=== PATIENT | male | born 1990 | race Caucasian/White ===

== ENCOUNTER 2017-02-12 19:47 | Emergency (ER) | payer SELFPAY ==
[~2017-02-12] VITALS: Ht 177.8 cm; Wt 79.4 kg
[2017-02-12 20:15] VITALS: BP 130/84
--- NOTE | 2017-02-12 21:01 | Emergency Room Report ---
History of Present Illness General Chief Complaint: Upper Extremity Injury Source: Patient Present Illness HPI Patient is a 26-year-old male who is right-hand dominant who presented after increased right upper extremity pain and swelling. Patient reportedly struck a wall. Patient denied any recent tetanus vaccine is. He noticed increased pain and swelling to the area after this occurred. Patient denied prior medical history. He denies taking any psychiatric medications or drinking alcohol recently. He denies numbness to his hand. Allergies: Coded Allergies: No Known Allergies (Unverified , 02/12/17) Patient History Reviewed Nursing Documentation: PMH: Agreed, PSxH: Agreed Nursing Documentation-PM Past Medical History: No Stated History Review of Systems All Other Systems: negative except mentioned in HPI Physical Exam Vital Signs Date Time Temp Pulse Resp B/P Pulse Ox O2 Delivery O2 Flow Rate FiO2 02/12/17 20:10 98.8 81 14 121/82 98 Room Air Sp02 EP Interpretation: reviewed, normal General Appearance: normal inspection, well appearing, no apparent distress, alert, GCS 15 Head: atraumatic ENT: normal ENT inspection, hearing grossly normal, normal voice Neck: normal inspection, full range of motion, supple, no bony tend Respiratory: normal inspection, lungs clear, normal breath sounds, no respiratory distress, no retraction, no wheezing Cardiovascular #1: regular rate, rhythm, no edema Gastrointestinal: normal inspection, normal bowel sounds, non tender, soft, no guarding, no hernia Genitourinary: no CVA tenderness Musculoskeletal: normal inspection, back normal, normal range of motion Neurologic: normal inspection, alert, oriented x3, responsive, radiation oncologist III-XII nml as tested, speech normal Psychiatric: normal inspection, judgement/insight normal, mood/affect normal Skin: normal inspection, normal color, no rash Medical Decision Making Diagnostic Impression: Primary Impression: Boxer's fracture ER Course Patient presented for hand pain. Differential diagnosis included was not limited to fracture, contusion, cellulitis among others. Patient appeared to have the evidence of swelling consistent with a possible boxer's fracture. X- ray imaging was ordered. X-ray imaging of the right hand 3 view interpreted by me showed fifth metacarpal fracture which was minimally angulated. The patient declined reduction attempts. Patient was placed in an ulnar gutter splint. He is advised followup with orthopedics. The patient is advised to follow up in 2-3 days for recheck. Patient is advised to return if any worsening condition or if any changes in status that are concerning. Last Vital Signs Date Time Temp Pulse Resp B/P Pulse Ox O2 Delivery O2 Flow Rate FiO2 02/12/17 20:10 98.8 81 14 121/82 98 Room Air Status: improved Disposition: HOME, SELF-CARE Condition: Stable Scripts Ibuprofen* (MOTRIN*) 600 Mg Tablet 600 MG ORAL Q8H Y for For Pain, #30 TAB 0 Refills Prov: Jarred Andrew 02/12/17 Hydrocodone Bit/Acetaminophen 5-325* (NORCO 5-325 TABLET*) 1 Each Tablet 1 TAB ORAL Q4H Y for For Pain, #20 TAB Prov: Jarred Andrew 02/12/17 Jarred Andrew Feb 12, 2017 21:01
[2017-02-12] MEDS ORDERED: NORCO 5-325 TA1 EAC1 ORAL (21:22)
[2017-02-12] MEDS ORDERED: IBUPROFEN600 MG ORAL (21:22)
[2017-02-12 22:00] VITALS: BP 127/86
--- NOTE | 2017-02-13 09:35 | Diagnostic Imaging Report ---
Indication: PAIN Technique: XRAY HAND MIN 3V RIGHT Comparison: None. Findings: There is a comminuted fracture of the fifth metacarpal neck with palmar angulation. The remainder of the bones are intact. The joints are normal. Soft tissue swelling is noted over the fracture site. Impression: Comminuted Boxer's fracture of the fifth metacarpal.
== END 2017-02-12 22:00 | disposition home or self-care (01) ==
LOC: EMR 21:13
DX: S62.336A Displaced fracture of neck of fifth metacarpal bone, right hand, initial encounter for closed fracture (principal); W22.8XXA Striking against or struck by other objects, initial encounter; Y93.9 Activity, unspecified; Y92.9 Unspecified place or not applicable
CPT/HCPCS: 29125; 99284